=== PATIENT | female | born 1980 ===

== ENCOUNTER 2019-03-05 16:12 | Inpatient (IN) ==
[2019-03-05] MEDS ORDERED: HYDROmorphone HCL 1 MG/ML DISP.SYRIN IV ONE ×4 (16:20→18:15)
--- NOTE | 2019-03-05 16:25 | ERNOTE ---
Lower Extremity HPI - Narrative Date of Service: 03/05/19 - General Lower Extremities Pain: leg: left - lower leg Time Seen by Provider: 03/05/19 16:12 Source: patient Exam Limitations: no limitations - Immun/Allergies/Home Medications Immunizations: IMMUNIZATION HX Immunizations Up to Date No History of Influenza Vaccine No Allergies/Adverse Reactions: Allergies Allergy/AdvReac Type Severity Reaction Status Date / Time acetaminophen Allergy Hives Verified 03/05/19 16:18 [From Darvocet-N] Penicillins Allergy Hives Verified 03/05/19 16:18 propoxyphene Allergy Hives Verified 03/05/19 16:18 [From Darvocet-N] prednisone AdvReac Verified 03/05/19 16:18 - Pain Score Pain Score #1 Pain Score: 10 - History of Present Illness Narrative: The patient is a 38 year old female who presents for left leg injury which has been present since [employer]. There are associated symptoms of left lower leg deformity. The patient reports pain to left lower leg, 10/10. There are no alleviating factors. There are aggravating factors of movement. Previous treatments have included: Fentanyl given via EMS [employer] with minimal improvement. The past medical history includes: COPD, GERD, Factor V deficiency, asthma and history of breast and thyroid cancer. The social history is positive for former smoker. The patient has had no ill contacts. Patient arrives via EMS after fall at home. Patient states she was walking down steps off deck when her left foot slipped becoming caught under chair. Patient states she then attempted to get self up and landed on left leg. Review of Systems - Review of Systems Constitutional: Present: no symptoms reported. Absent: recent illness, fever, fatigue EYE: Present: no symptoms reported ENT: Present: no symptoms reported. Absent: ear pain, nasal drainage, sore throat Respiratory: Present: no symptoms reported. Absent: shortness of breath, cough Cardiology: Present: no symptoms reported. Absent: chest pain Gastrointestinal/Abdominal: Present: no symptoms reported. Absent: nausea, vomiting, diarrhea Genitourinary: Present: no symptoms reported. Absent: dysuria Musculoskeletal: Present: joint pain Skin: Present: no symptoms reported All Other Systems: All systems neg except as marked Medical History (Updated 03/05/19 @ 16:24 by Radha Nayak RN) Asthma Breast cancer remission COPD (chronic obstructive pulmonary disease) Factor V deficiency GERD (gastroesophageal reflux disease) H/O: hysterectomy Walter syndrome Thyroid cancer Surgical History: Surgical History (Updated 03/05/19 @ 16:24 by Radha Nayak RN) H/O partial thyroidectomy H/O tubal ligation History of appendectomy Family History: Family History (Last Reviewed 03/05/19 @ 18:31 by BING Roth) Mother Throat cancer Anxiety Father Brain cancer Anxiety Other Depression Social History: (Last Reviewed 03/05/19 @ 18:31 by BING Roth) Social History: Marital status: household members: spouse number of children: 1 parent marital status: current occupational status: disabled Tobacco: Smoking Status: Former smoker tobacco type: cigarettes Alcohol: alcohol intake: former Substance Use: substance use type: former substance user, methamphetamine Physical Exam - Physical Exam General Appearance: Present: wd/wn, alert, severe distress Head Exam: Present: normal inspection, no evidence of injury Eye Exam: Normal inspection: bilateral, PERRL: bilateral Neck: Present: normal inspection, nontender, full range of motion Respiratory: Present: no respiratory distress, normal breath sounds, no accessory muscle use, lungs clear Cardiovascular/Chest: Present: no murmur, tachycardia Peripheral Pulses: N=norm/S=strong/W=weak/B=bound/A=absent: Dorsalis-pedis (L): Normal Gastrointestinal/Abdominal: Present: normal bowel sounds, nontender, nondistended, soft, no organomegaly Extremity Exam: Present: decreased range of motion, bony tenderness - deformity to left lower leg with pain and overlying ecchymosis, other - passive dorsi flexion to left great toe without pain Neurological Exam: Present: alert, oriented, normal mood/affect Skin Exam: Present: normal color, warm/dry Progress - Date and Time Seen: Date and Time: 03/05/19 16:48 Images sent via [employer] to . Instructed to apply AO splint and admit. 03/05/19 17:29 Jan CARUSO in with patient. 03/05/19 18:00 Discussed case with , will admit to medicine for tib/fib fracture. - Results and Orders Patient's Lab Results:: I have reviewed the patient's lab results. - Vital Signs Patient's Vital Signs:: I have reviewed the patient's vital signs. Vital Signs: Vital Signs 03/05/19 16:12 Temperature 37.6 C Pulse Rate 118 H Respiratory Rate 22 H Blood Pressure 112/86 - X-Ray X-Ray #1 X-Ray: tibula/fibula Interpretation: Reviewed by me X-ray Comments: IMPRESSION: ACUTE OBLIQUE ANGULATED AND MILDLY DISPLACED TIB-FIB FRACTURES DISCUSSED ABOVE. Electronically signed by Rocky Solano D.O.. - Progress/Reassessment Chief Complaint: Lower Extremity Pain/ Injury Departure Clinical Impression: Tibia/fibula fracture Qualifiers: Encounter type: initial encounter Fracture type: closed Laterality: left Qualified Code(s): S82.202A - Unspecified fracture of shaft of left tibia, initi al encounter for closed fracture; S82.402A - Unspecified fracture of shaft of left fibula, initial encounter for closed fracture - Departure Disposition: Still a patient Condition: Fair
[2019-03-05 17:55] LABS: Hematocrit 37.1 % (37.0-47.0); Hemoglobin 12.3 gm/dL (12.5-16.0); Mean Cell Volume 96.1 fl (78-100); Mean Corpuscular Hemoglobin 31.9 pg (27-31); Mean Corpuscular Hgb Conc 33.2 g/dl (32-36); Mean Platelet Volume 11.8 fl (8-12.5); Neutrophil # 9.5 K/mm3 (1.3-6.0); Platelet Count 238 K/mm3 (150-450); Red Blood Count 3.86 M/mm3 (4.2-5.4); Red Cell Distribution Width 14.1 % (11.5-14.0); White Blood Count 11.6 K/mm3 (4.0-10.5)
[2019-03-05 18:10] LABS: Prothrombin Time (Patient) 10.1 Seconds (9.1-10.7)
[2019-03-05] MEDS ORDERED: MIDAZOLAM HCL/PF 5 MG/ML VIAL ONE (18:10)
[2019-03-05 18:11] LABS: INR 1.02 INR (0.92-1.08); Partial Thrombolplastin Time 25.7 Seconds (24-32)
[2019-03-05 18:14] LABS: Albumin * 3.4 gm/dl (3.4-5.0); Anion Gap 15.8 mmol/L (6.8-13.8); BUN/Creatinine Ratio 21.7 (9.0-21.6); Bilirubin, Total 0.2 mg/dL (0.0-1.1); Ca. Corrected For Albumin 9.7 mg/dL (8.4-10.2); Calcium * 9.5 mg/dL (7.9-10.9); Carbon Dioxide 24.7 mmol/L (24-32.6); Potassium 4.5 mmol/L (3.4-4.6); Total Protein 7.8 gm/dL (6.2-8.2)
[2019-03-05] MEDS ORDERED: HYDROmorphone HCL 1 MG/ML DISP.SYRIN ONE (18:14)
[2019-03-05] MEDS ORDERED: ONDANSETRON HCL/PF 2 MG/ML VIAL IV PRN (18:21)
[2019-03-05] MEDS ORDERED: HYDROmorphone HCL 1 MG/ML DISP.SYRIN IV PRN ×2 (18:21→21:35)
--- NOTE | 2019-03-05 18:35 | CONS ---
HPI - General Date of Service: 03/05/19 Narrative: Patient was leaving her house when she stepped on her porch and slipped. She states her leg got caught and her whole body weight came down on her leg. She had immediate pain and was brought to ER by EMS. She states her pain is significantly worse with movement, better with rest. She has had pain medication in the ER that has helped with the pain. She states she has a PMH of Factore V Leiden takes Xeralto daily. She has history of blood clots, approximately 2 weeks ago had a blood clot in her lung that was treated at [facility]. She notes a previous history of breast and thyroid cancer. She notes she was homeless at one point, but her overall health has improved in the last 6 years. Source: patient - History of Present Illness Allergies/Adverse Reactions: Allergies acetaminophen [From Darvocet-N] Allergy (Verified 03/05/19 16:18) Hives Penicillins Allergy (Verified 03/05/19 16:18) Hives propoxyphene [From Darvocet-N] Allergy (Verified 03/05/19 16:18) Hives prednisone Adverse Reaction (Verified 03/05/19 16:18) Tachycardia Date of Service: 03/05/19 closed reduction and splinting of left tibia/fibula fracture Physical Examination - Exam Vital Signs: Vital Signs - Last Taken Temp 37.6 C 03/05/19 16:12 Pulse 115 H 03/05/19 18:03 Resp 16 03/05/19 18:03 BP 140/73 H 03/05/19 18:03 Pulse Ox 94 03/05/19 18:03 O2 Oxygen Delivery Method Room Air Constitutional: Present: Alert, Cooperative, Acute distress Respiratory: Present: no respiratory distress Extremity: Present: other - LLE--> SILT, passive motion of toes minimal pain, mild external rotation of ankle compared bilaterally, dorsal pedis pulse 2+, distal capillary refill brisk, no obvious wounds, mild deformity Eye contact: Present: cooperative Thoughts: Present: normal thought pattern - Results and Findings: Lab/Microbiology results last 24 hrs: Abnormal/Pending Laboratory Last 24 HRS 03/05/19 03/05/19 17:50 17:50 WBC 11.6 H RBC 3.86 L Hgb 12.3 L MCH 31.9 H RDW 14.1 H Immature Gran # (Auto) 0.05 H Neutrophils % 82.0 H Lymphocytes % 11.6 L Neutrophils # 9.5 H Lymphocytes # 1.34 L Anion Gap 15.8 H BUN/Creatinine Ratio 21.7 H ALT 10 L - Assessments/Findings (1) Tibia/fibula fracture Problem: Acute Qualifiers: Encounter type: initial encounter Fracture type: closed Laterality: left Qualified Code(s): S82.202A - Unspecified fracture of shaft of left tibia, initial encounter for closed fracture; S82.402A - Unspecified fracture of shaft of left fibula, initial encounter for closed fracture Plan - Plan Plan: -38 y/o female s/p fall with left tibia/fibula fracture -NWB LLE -DVT prophy: arie saeed knee high, SCDs in bed -Neurovascular checks Q1H for monitoring for compartments syndrome -Maintain LLE in splint until surgery -Chronic medical conditions per medicine -Discussed closed reduction with splinting and conservative vs. surgical intervention with tibia nailing on 03/06/19. Discussed risk including but not limited to infection, bleed, malunion vs. nonunion fracture healing, VTE risk, stroke risk, cardiac risk, inherent surgical risk. Patient agreed to proceed with these interventions. Consent for reduction was obtained and preformed without significant complication, see procedure note for details. Patient will be admitted to medicine for monitoring due to chronic medical history and risks.
--- NOTE | 2019-03-05 18:58 | PROC NOTE ---
ED Procedures - Joint Reduction Joint Reduction Site: other - left tibia/fibula fracture Conscious Sedation: No Reduction Attempts: 1 Pre-Procedure NV Exam: Yes - no significant pain with passive motion of digits Post-Procedure NV Exam: Yes - no significant pain with passive motion of digits Post Joint Reduction Film: other - improved alignment with splint application to left lower extremity of tibia/fibula fracture Progress: Consent was obtained for reduction and splinting of left tibia/fibula fracture. Patient was given pain medication and mild distractio with slight internal rotation of left ankle was preformed. An AO ankle splint was applied with appropriate padding. Patient neurovascular exam was unchanged pre and post reduction. Patient tolerated procedure with mild to moderate pain. Once splint was applied patient reported decreased pain. Patient was stable in splint. - Splinting Left Hand-Made Type: ocl Splint: AO ankle Pre-Proc Neuro Vasc Exam: normal Post-Proc Neuro Vasc Exam: normal, unchanged from pre-exam
--- NOTE | 2019-03-05 23:25 | HP ---
Chief Complaint - Chief Complaint Date of Service: 03/05/19 Time of Service: 23:00 Chief Complaint: Left Leg Pain History of Present Illness: "Devon" is a 38 yo female with significant PMH of COPD, Breast Cancer, Factor V Lieden, and pulmonary embolism treated on Xarelto. She was taking the trash out of her house when she slipped on her door mat and her leg slid and bent and she landed awkwardly. She immediately had pain and her cracking noises. She was unable to bear weight and was found down shortly after and transported to the ER. Xray shows left middle and distal tibial spiral fracture and proximal fibula spiral fracture. Ortho was consulted and splinted the fracture temporarily, and recommend surgery tomorrow. They requested she be admitted to medicine for medical clearance due to her complicated medical history. She reports prior to the fall she was feeling well. She denies any recent chest pain or shortness of breath over the last two weeks. She does admit that she was recently hospitalized for Pulmonary Embolism after she had been unable to afford her xarelto and had stopped taking this for a month. She is now back on her Xarelto. She denies any bruising or bleeding concerns. She reports having a recent hysterectomy in June of this year without complications. She reports she has COPD and uses albuter nebulizers prn and daily symbicort. Medical History (Updated 03/05/19 @ 23:25 by Joshua Mccormack DO) Asthma Breast cancer remission COPD (chronic obstructive pulmonary disease) Factor V deficiency GERD (gastroesophageal reflux disease) Glaucoma H/O: hysterectomy Walter syndrome Thyroid cancer Surgical History: Surgical History (Updated 03/05/19 @ 16:24 by Radha Nayak RN) H/O partial thyroidectomy H/O tubal ligation History of appendectomy Family History: Family History (Last Reviewed 03/05/19 @ 19:07 by Shikha Dodge RN) Mother Throat cancer Anxiety Father Brain cancer Anxiety Other Depression Social History: (Last Reviewed 03/05/19 @ 19:07 by Shikha Dodge RN) Social History: Marital status: household members: spouse number of children: 1 parent marital status: current occupational status: disabled Tobacco: Smoking Status: Former smoker tobacco type: cigarettes Alcohol: alcohol intake: former Substance Use: substance use type: former substance user, methamphetamine Review Of Systems (GEN) - Review of Systems Generalized/Overall Review: Absent: Weakness, Chills, Fever EENTM: Present: No Symptoms Reported Respiratory: Absent: Cough, Shortness of Breath Cardiac: Absent: Chest Pain, Palpitations Abdominal: Absent: Nausea, Vomiting Genitourinary: Absent: Burning, Itching Musculoskeletal: Present: Other - Left leg pain Skin: Absent: Lesions, Rash Immunizations: IMMUNIZATION HX Immunizations Up to Date No History of Influenza Vaccine No Allergies/Adverse Reactions: Allergies Allergy/AdvReac Type Severity Reaction Status Date / Time acetaminophen Allergy Hives Verified 03/05/19 16:18 [From Darvocet-N] Penicillins Allergy Hives Verified 03/05/19 16:18 propoxyphene Allergy Hives Verified 03/05/19 16:18 [From Darvocet-N] prednisone AdvReac Verified 03/05/19 16:18 Home Medications: HOME MEDICATIONS Albuterol Sulfate [Albuterol Sulfate 2.5 MG/0.5ML] 2.5 mg INHALATION Q4H PRN 03/06/19 [Last Taken Unknown] Brexpiprazole [Rexulti] 2 mg PO HS 03/06/19 [Last Taken Unknown] Budesonide [Pulmicort Flexhaler] 2 puff INHALATION BID 03/06/19 [Last Taken Unknown] Diclofenac Sodium [Voltaren] 75 mg PO BID 03/06/19 [Last Taken Unknown] HYDROcodone/ACETAMINOPHEN [Hydrocodon-Acetaminophn 10-325] 1 tab PO Q6H PRN 03/06/19 [Last Taken Unknown] Levothyroxine Sodium [Synthroid] 75 mcg PO DAILY 03/06/19 [Last Taken Unknown] Mometasone Furoate [Asmanex] 1 puff INHALATION DAILY PRN 03/06/19 [Last Taken Unknown] Montelukast Sodium [Singulair] 10 mg PO DAILY PRN 03/06/19 [Last Taken Unknown] Omeprazole [Prilosec] 20 mg PO DAILY 03/06/19 [Last Taken Unknown] Rivaroxaban [Xarelto] 20 mg PO DAILY 03/06/19 [Last Taken Unknown] prednisoLONE ACETATE [Pred Forte 1%] 1 drp OPHTHALMIC (EYE) Q2H 03/06/19 [Last Taken Unknown] tiZANidine HCL [Tizanidine HCl] 2 mg PO HS 03/06/19 [Last Taken Unknown] Exam - Exam Vital Signs: Vital Signs - Last Taken Temp 37.0 C 03/05/19 19:21 Pulse 122 H 03/05/19 19:21 Resp 18 03/05/19 19:21 BP 140/50 H 03/05/19 19:21 Pulse Ox 95 03/05/19 19:21 Constitutional: Present: Alert, Oriented x3, Cooperative ENT Exam: Present: hearing grossly normal Eye Exam: bilateral eye: normal inspection Respiratory: Present: lungs clear, normal breath sounds Cardiovascular/Chest: Present: no murmur, tachycardia Peripheral Pulses: radial (R): 2+, radial (L): 2+ Abdomen: Present: Normal bowel sounds, soft, nontender, nondistended Skin Exam: Present: normal color, warm/dry, no cyanosis Appearance: Present: appropriate appearance, appropriate insight Eye contact: Present: cooperative, good eye contact, normal speech Diagnostic Studies: Abnormal Lab Results 03/05/19 03/05/19 Range/Units 17:50 17:50 WBC 11.6 H (4.0-10.5) K/mm3 RBC 3.86 L (4.2-5.4) M/mm3 Hgb 12.3 L (12.5-16.0) gm/dL MCH 31.9 H (27-31) pg RDW 14.1 H (11.5-14.0) % Immature Gran # (Auto) 0.05 H (0.000-0.0310) K/mm3 Neutrophils % 82.0 H (42-75.0) % Lymphocytes % 11.6 L (20-51) % Neutrophils # 9.5 H (1.3-6.0) K/mm3 Lymphocytes # 1.34 L (1.5-3.5) k/mm3 Anion Gap 15.8 H (6.8-13.8) mmol/L BUN/Creatinine Ratio 21.7 H (9.0-21.6) ALT 10 L (19-67) U/L Laboratory Results WBC 11.6 K/mm3 (4.0-10.5) H 03/05/19 17:50 RBC 3.86 M/mm3 (4.2-5.4) L 03/05/19 17:50 Hgb 12.3 gm/dL (12.5-16.0) L 03/05/19 17:50 Hct 37.1 % (37.0-47.0) 03/05/19 17:50 MCV 96.1 fl (78-100) 03/05/19 17:50 MCH 31.9 pg (27-31) H 03/05/19 17:50 MCHC 33.2 g/dl (32-36) 03/05/19 17:50 RDW 14.1 % (11.5-14.0) H 03/05/19 17:50 Plt Count 238 K/mm3 (150-450) 03/05/19 17:50 MPV 11.8 fl (8-12.5) 03/05/19 17:50 Immature Gran % (Auto) 0.40 % (0.001-0.429) 03/05/19 17:50 Immature Gran # (Auto) 0.05 K/mm3 (0.000-0.0310) H 03/05/19 17:50 82.0 % (42-75.0) H 03/05/19 17:50 11.6 % (20-51) L 03/05/19 17:50 4.2 % (0.0-9) 03/05/19 17:50 1.6 % (0.0-3.0) 03/05/19 17:50 0.2 % (0.0-1.0) 03/05/19 17:50 Nucleated RBC % 0.0 k/mm3 (0-1) 03/05/19 17:50 9.5 K/mm3 (1.3-6.0) H 03/05/19 17:50 1.34 k/mm3 (1.5-3.5) L 03/05/19 17:50 0.5 k/mm3 (0.0-1.0) 03/05/19 17:50 0.2 k/mm3 (0.0-0.7) 03/05/19 17:50 Absolute Basophils 0.0 k/mm3 (0.0-0.1) 03/05/19 17:50 PT 10.1 Seconds (9.1-10.7) 03/05/19 17:50 INR (Anticoag Therapy) 1.02 INR (0.92-1.08) 03/05/19 17:50 PTT (Vane) 25.7 Seconds (24-32) 03/05/19 17:50 Sodium 139 mmol/L (132-142) 03/05/19 17:50 139 mmol/L (130-142) 03/05/19 17:50 Potassium 4.5 mmol/L (3.4-4.6) 03/05/19 17:50 Chloride 103 mmol/L (97-106) 03/05/19 17:50 Carbon Dioxide 24.7 mmol/L (24-32.6) 03/05/19 17:50 15.8 mmol/L (6.8-13.8) H 03/05/19 17:50 BUN 18 mg/dL (3-23) 03/05/19 17:50 0.83 mg/dL (0.4-1.4) 03/05/19 17:50 Est GFR (Non-Af Amer) 83 mL/min (60-130) 03/05/19 17:50 21.7 (9.0-21.6) H 03/05/19 17:50 106 mg/dL (70-110) 03/05/19 17:50 Calcium 9.5 mg/dL (7.9-10.9) 03/05/19 17:50 Calcium Adj for Albumin 9.7 mg/dL (8.4-10.2) 03/05/19 17:50 0.2 mg/dL (0.0-1.1) 03/05/19 17:50 AST 7 U/L (0-48) 03/05/19 17:50 ALT 10 U/L (19-67) L 03/05/19 17:50 121 U/L (50-170) 03/05/19 17:50 7.8 gm/dL (6.2-8.2) 03/05/19 17:50 3.4 gm/dl (3.4-5.0) 03/05/19 17:50 Assessment/Plan - Narrative Narrative: "Devon" is a 38 yo female with left Tib/Fib spiral fractures. Orthopedics have been consulted in the ER. Temporary splint was placed and recommendation for surgical repair tomorrow. She will be admitted to observation and medical evaluated for complications and prepared for surgery. She has significant co- morbidities of COPD, Factor V Leiden, and recent pulmonary embolism (3 weeks ago). She is currently on xarelto. Her COPD is relatively controlled and she is on symbicort and albuterol nebulizer prn. She reports not needing her albuterol often and her lung exam is clear at this time. I would recommend albuterol nebulizer prior to surgery. Patient was evaluated for pre-operative risks. EKG completed and reviewed showing normal sinus rhythm. Based on Revised Cardiovascular Risk Index she has a risk of 4% for cardiovascular event. I feel she is medically cleared for surgery. Will hold xarelto at this time and may treat with lovenox or restarting xarelto after surgery per ortho's wishes. Expect 1 midnight stay and she should be ok for discharge following surgery. - Assessment/Plan (1) Tibia/fibula fracture Problem: Acute Qualifiers: Encounter type: initial encounter Fracture type: closed Laterality: left Qualified Code(s): S82.202A - Unspecified fracture of shaft of left tibia, initial encounter for closed fracture; S82.402A - Unspecified fracture of shaft of left fibula, initial encounter for closed fracture (2) COPD (chronic obstructive pulmonary disease) Problem: Acute (3) Factor V Leiden Problem: Acute (4) Pulmonary embolism Problem: Acute
[2019-03-06] MEDS: HYDROmorphone HCL 1 MG/ML DISP.SYRIN IV PRN ×6 (00:10→22:40)
[2019-03-06] MEDS ORDERED: HYDROmorphone HCL 2 MG/ML VIAL IV PRN (06:43)
[2019-03-06] MEDS ORDERED: DEXTROSE 5%-0.5 NORMAL SALINE 1,000 ML IV PRN (09:31)
[2019-03-06] MEDS ORDERED: ALBUTEROL SULFATE 2.5 MG/0.5 ML VIAL.NEB IH PRN (09:32)
[2019-03-06] MEDS ORDERED: ceFAZolin SODIUM/DEXTROSE,ISO 2 GM/50 ML BAG IV ONE (10:24)
[2019-03-06] MEDS ORDERED: ceFAZolin SODIUM 1 GM VIAL IV ONE (10:30)
[2019-03-06] MEDS: RINGER'S SOLUTION,LACTATED 1,000 ML IV PRN ×3 (10:45→15:02)
[2019-03-06] MEDS: ALBUTEROL SULFATE/IPRATROPIUM 3 ML NEBU IH PRN (10:58)
--- NOTE | 2019-03-06 11:09 | ANES ---
Anesthesia Pre Procedure Eval Vitals/Labs: Last Vital Signs Temp 36.3 C 03/06/19 10:10 Pulse 93 03/06/19 10:10 Resp 18 03/06/19 10:10 BP 117/53 03/06/19 10:10 Pulse Ox 94 03/06/19 10:10 HOME MEDICATIONS Albuterol Sulfate [Albuterol Sulfate 2.5 MG/0.5ML] 2.5 mg INHALATION Q4H PRN 03/06/19 [Last Taken Unknown] Brexpiprazole [Rexulti] 2 mg PO HS 03/06/19 [Last Taken Unknown] Budesonide [Pulmicort Flexhaler] 2 puff INHALATION BID 03/06/19 [Last Taken Unknown] Diclofenac Sodium [Voltaren] 75 mg PO BID 03/06/19 [Last Taken Unknown] HYDROcodone/ACETAMINOPHEN [Hydrocodon-Acetaminophn 10-325] 1 tab PO Q6H PRN 03/06/19 [Last Taken Unknown] Levothyroxine Sodium [Synthroid] 75 mcg PO DAILY 03/06/19 [Last Taken Unknown] Mometasone Furoate [Asmanex] 1 puff INHALATION DAILY PRN 03/06/19 [Last Taken Unknown] Montelukast Sodium [Singulair] 10 mg PO DAILY PRN 03/06/19 [Last Taken Unknown] Omeprazole [Prilosec] 20 mg PO DAILY 03/06/19 [Last Taken Unknown] Rivaroxaban [Xarelto] 20 mg PO DAILY 03/06/19 [Last Taken Unknown] prednisoLONE ACETATE [Pred Forte 1%] 1 drp OPHTHALMIC (EYE) Q2H 03/06/19 [Last Taken Unknown] tiZANidine HCL [Tizanidine HCl] 2 mg PO HS 03/06/19 [Last Taken Unknown] Allergies/Adverse Reactions: Allergies Allergy/AdvReac Type Severity Reaction Status Date / Time acetaminophen Allergy Hives Verified 03/05/19 16:18 [From Darvocet-N] Penicillins Allergy Hives Verified 03/05/19 16:18 propoxyphene Allergy Hives Verified 03/05/19 16:18 [From Darvocet-N] prednisone AdvReac Verified 03/05/19 16:18 - Planned Procedure Planned Procedure: LLE injury Medication List Reviewed:: Yes Allergies Verified: Yes Medical History (Updated 03/05/19 @ 23:25 by Joshua Mccormack DO) Asthma Breast cancer remission COPD (chronic obstructive pulmonary disease) Factor V deficiency GERD (gastroesophageal reflux disease) Glaucoma H/O: hysterectomy Walter syndrome Thyroid cancer Surgical History (Updated 03/05/19 @ 16:24 by Radha Nayak RN) H/O partial thyroidectomy H/O tubal ligation History of appendectomy Family History (Last Reviewed 03/06/19 @ 10:57 by Akbar Cortez CRNA) Mother Throat cancer Anxiety Father Brain cancer Anxiety Other Depression - Family Anesthesia History Family History:: no untoward family reactions to anesthesia, no familial bleeding tendencies, no family history of clotting disorders, no family history of premature - Airway/Neck/Teeth Within Normal Limits:: Yes Teeth Condition: intact Denture Type: Full upper Neck Exam: full range of motion Mallampatti Score: 1 Thyromental (T-M) distance: > 6 cm Mandibulo Hyoid distance: > 3 cm - Respiratory Respiratory History: asthma, COPD Smoking Status: Former smoker - quit 5 months ago Sleep Apnea currently treated: No Sleep Apnea by current assessment: No - Cardiovascular Tolerate Activity: Fair Heart Sounds: S1 & S2, Regular - Anesthesia Assessment and Plan ASA Class: PS, III Anesthesia Type Plan: Block - possible for post op pain relief, Spinal - Xaralta last on Tuesday Planned difficult intubation/equipment available: No
[2019-03-06] MEDS ORDERED: BUPIVACAINE HCL/EPINEPHRINE 50 ML VIAL IJ PRN (14:00)
[2019-03-06] MEDS ORDERED: MAG HYDROX/ALUMINUM HYD/SIMETH 30 ML UDC PO PRN (14:50)
[2019-03-06] MEDS ORDERED: NORMAL SALINE 1,000 ML IV PRN (14:50)
[2019-03-06] MEDS ORDERED: oxyCODONE HCL 5 MG TABLET PO PRN (14:54)
[2019-03-06] MEDS ORDERED: BUPIVACAINE HCL/EPINEPHRINE 50 ML VIAL IJ ONE (15:03)
--- NOTE | 2019-03-06 15:08 | OR ---
Operative Report - Dictated Report Narrative: Date: 03/06/2019 Surgeon: Carmine Dyson M.D. Internal Medicine Veterinary Technician: Jan Lewis PA-C provided a set of essential, skilled, educated hands that assisted in positioning, transfer, retraction, manipulation, irrigation, closure of wounds, and placement of dressings all of which could not be provided by the available surgical crew. Anesthesia: Spinal plus local Preoperative diagnosis: Left tibial and fibular shaft fractures Postoperative diagnosis: Left tibial and fibular shaft fractures Procedure: 1. Intramedullary nailing of left tibial shaft fracture 2. Intra-operative interpretation of radiographs Estimated blood loss: 150 mL Tourniquet time: None Retained implants: [employer] TriGen 8.5 x 300 mm tibial nail and associated interlocking screws Specimens: None Complications: None Indications: Brittany is a 38-year-old female who fell from standing height and sustained left tibial and fibular shaft fractures. They were seen in the emergency department with images obtained revealing the above injury. She was admitted to the hospital for planned surgical fixation and medical comanagement given her history of Factor V Leiden and history of multiple clots. The risks, benefits, and treatment options were discussed with the patient and the plan for intramedullary nailing of the tibia was discussed. Risks were reviewed including , DVT/PE, nerve/tendon/blood vessel injury, malunion, nonunion, failure of implants, prominent implants, arthrosis, persistent pain, need for additional procedures, and risks of anesthesia. Procedure: After a timeout, a spinal anesthetic was administered. Beanbag was utilized in order bump the operative leg and a well-padded tourniquet was applied to the operative thigh. The splint was removed and the leg was pre-scrubbed with chlorhexidine then prepped and draped in a standard sterile fashion. Attention was turned to the knee. A trans-patellar approach for our tibial nail was chosen. An approximately 4 cm incision was made directly over the patellar tendon. This was carried down through the tendon itself longitudinally. A guidepin was placed through the incision at the anterior aspect of the tibial plateau just off the articular surface on the lateral view and at the medial aspect of the lateral tibial eminence on the AP view centered down the tibial shaft. This was advanced down the intramedullary canal. The entry reamer was then used to ream our entry hole over the guidepin. A long ball-tipped guidewire was then passed down the intramedullary canal, across the fracture site, into a center-center position at the distal physeal scar of the distal tibia. This was confirmed with the C-arm. We checked the alignment of our fracture site on AP and lateral views and noted that it was well aligned. We then sequentially reamed the tibial canal starting with a 9 mm end-cutting reamer. This had significant chatter she was noted to have a very small tibial canal. We sequentially reamed up to 10 mm with significant cortical chatter. Our nail length was measured and we chose an 8.5 mm x 30 cm nail. This was advanced down the intramedullary canal over the guidewire and seated it completely distally. The C-arm was used to visualize the fracture site as we advanced our nail to ensure good alignment. There was no displacement of our fracture and with the nail fully seated, the fracture had excellent alignment on AP and lateral views. The first proximal interlocking screw was placed through the cantilever interlocking guide. While trying to place the second proximal interlocking screw, this became bound up in the nail hole. We were unable to back it out as the screw head was stripped. After several attempts with the hardware removal set we elected to cut the screw at the level of the bone with heavy side cutters. The sharp cut end of the screw was then burred down with a shirley-tip bur. Two distal interlocking screws were placed from medial to lateral using the perfect circles technique. Final images were taken at the knee, the fracture site, and the ankle. We confirmed appropriate placement and length of all of our implants as well as our fracture reduction. At this point we felt we had adequately stabilize her fracture. The wounds were all copiously irrigated with normal saline. The patellar tendon and subcutaneous tissue were closed utilizing 0 Vicryl. The skin was closed utilizing 3-0 Vicryl in an interrupted deep dermal fashion followed by 4-0 nylon for the skin. The wounds were dressed with xeroform, 4 x 4's, soft roll, and an YAKOV bandage. The patient was then placed in a cam walker. Patient was then awoken and transferred to postanesthesia care in stable condition. All sponge, sharp, and instrument counts were correct prior to closing the wounds.
--- NOTE | 2019-03-06 15:10 | PN ---
Subjective - Date and Time Seen Date: 03/06/19 Time: 10:30 Subjective Narrative: Patient reports no acute events, her pain is well controlled overnight. She notes no significant changes. She has no other significant acute symptoms. She notes her pain is worse with movement better with rest. She notes that the splint has aided in decreasing her overall pain. Objective - Vitals Vitals: Last Vital Signs Temp 36.5 C 03/06/19 15:04 Pulse 113 H 03/06/19 15:04 Resp 12 03/06/19 15:04 BP 127/82 03/06/19 15:04 Pulse Ox 100 03/06/19 15:04 - Abnormal Lab Findings Abnormal Lab Findings: Abnormal Lab Results 03/05/19 03/05/19 Range/Units 17:50 17:50 WBC 11.6 H (4.0-10.5) K/mm3 RBC 3.86 L (4.2-5.4) M/mm3 Hgb 12.3 L (12.5-16.0) gm/dL MCH 31.9 H (27-31) pg RDW 14.1 H (11.5-14.0) % Immature Gran # (Auto) 0.05 H (0.000-0.0310) K/mm3 Neutrophils % 82.0 H (42-75.0) % Lymphocytes % 11.6 L (20-51) % Neutrophils # 9.5 H (1.3-6.0) K/mm3 Lymphocytes # 1.34 L (1.5-3.5) k/mm3 Anion Gap 15.8 H (6.8-13.8) mmol/L BUN/Creatinine Ratio 21.7 H (9.0-21.6) ALT 10 L (19-67) U/L - Exam Constitutional: Present: Alert, Cooperative, No distress Respiratory: Present: no respiratory distress Extremity: Present: other - LLE--> AO ankle splint in place, distal capillary refill brisk, incision intact light touch, 5/5 toe flexion and extension diffuse mild tenderness about lower extremity at the level of the tibia and fibula Eye contact: Present: cooperative Thoughts: Present: normal thought pattern Assessment/Plan Plan Narrative: -38 y/o female status post a fall with a left tibia/fibula fracture -Nonweightbearing since time of injury -N.p.o. since midnight -Discussed with patient conservative or surgical intervention and possible risks versus benefits including but not limited to infection, bleeding, DVT risk, cardiac and stroke risk, malunion versus nonunion fracture healing, inherent risk of surgery. Patient wished to proceed with surgical intervention. Surgery will be performed on 03/06/2019. She was marked prior to surgical intervention. All questions were answered at this time. Patient will remain admitted in the hospital for monitoring postoperatively for pain control, progression to weightbearing status, postoperative complications. - Problems/Diagnosis (1) Tibia/fibula fracture Problem: Acute Qualifiers: Encounter type: initial encounter Fracture type: closed Laterality: left Qualified Code(s): S82.202A - Unspecified fracture of shaft of left tibia, initial encounter for closed fracture; S82.402A - Unspecified fracture of shaft of left fibula, initial encounter for closed fracture
--- NOTE | 2019-03-06 15:16 | ANES ---
Post Anesthesia Discharge - Transfer of Care Transfer of Care handoff given to nurse: Yes - Discharge from PACU Discharge from PACU when meets criteria: Yes
--- NOTE | 2019-03-06 15:16 | ANES ---
Post Anesthesia Assessment - Vital Signs Vitals: Last Vital Signs Temp 36.5 C 03/06/19 15:05 Pulse 113 H 03/06/19 15:05 Resp 12 03/06/19 15:05 BP 127/82 03/06/19 15:05 Pulse Ox 100 03/06/19 15:05 Airway Patency: Normal - Mental Status Level Of Consciousness: Awake - Pain Level Pain Score: 0 - N/V Assessment Nausea/Vomiting Presence: None Dehydration:: No
[2019-03-06] MEDS: ceFAZolin SODIUM 2 GM in DEXTROSE 5 % IN WATER 50 ML IV SCH ×2 (17:03)
--- NOTE | 2019-03-06 17:28 | PN ---
Subjective - Date and Time Seen Date: 03/06/19 Time: 17:24 Subjective Narrative: Devon is in tears from left leg pain. Reports she just got her oxycodone. Reports no nausea or vomiting. Ate food without problems after surgery. No fever or chills. Objective - Vitals Vitals: Last Vital Signs Temp 36.1 C 03/06/19 15:36 Pulse 113 H 03/06/19 16:21 Resp 16 03/06/19 15:51 BP 107/52 03/06/19 16:06 Pulse Ox 98 03/06/19 16:21 - Abnormal Lab Findings Abnormal Lab Findings: Abnormal Lab Results 03/05/19 03/05/19 Range/Units 17:50 17:50 WBC 11.6 H (4.0-10.5) K/mm3 RBC 3.86 L (4.2-5.4) M/mm3 Hgb 12.3 L (12.5-16.0) gm/dL MCH 31.9 H (27-31) pg RDW 14.1 H (11.5-14.0) % Immature Gran # (Auto) 0.05 H (0.000-0.0310) K/mm3 Neutrophils % 82.0 H (42-75.0) % Lymphocytes % 11.6 L (20-51) % Neutrophils # 9.5 H (1.3-6.0) K/mm3 Lymphocytes # 1.34 L (1.5-3.5) k/mm3 Anion Gap 15.8 H (6.8-13.8) mmol/L BUN/Creatinine Ratio 21.7 H (9.0-21.6) ALT 10 L (19-67) U/L - Exam Constitutional: Present: Alert, Oriented x3, Mild distress - due to pain Respiratory: Present: lungs clear, no respiratory distress Cardiovascular/Chest: Present: no murmur, tachycardia Abdomen: Present: Normal bowel sounds, soft, nontender, nondistended Appearance: Present: other - crying Assessment/Plan Plan Narrative: Pain is currently uncontrolled to discharge to home. Will have her get prn IV dilaudid for severe pain. She will also continue oxycodone oral. Will anticipate discharge to home tomorrow once pain is controlled. No other medical concerns at this time. - Problems/Diagnosis (1) Tibia/fibula fracture Problem: Acute Qualifiers: Encounter type: initial encounter Fracture type: closed Laterality: left Qualified Code(s): S82.202A - Unspecified fracture of shaft of left tibia, initial encounter for closed fracture; S82.402A - Unspecified fracture of shaft of left fibula, initial encounter for closed fracture (2) COPD (chronic obstructive pulmonary disease) Problem: Acute (3) Factor V Leiden Problem: Acute (4) Pulmonary embolism Problem: Acute
[2019-03-06] MEDS ORDERED: HYDROmorphone HCL 2 MG/ML VIAL IV ONE (18:15)
[2019-03-06] MEDS: tiZANidine HCL 4 MG TABLET PO SCH (20:00)
[2019-03-06] MEDS: SENNOSIDES/DOCUSATE SODIUM 1 TAB TABLET PO SCH (20:00)
[2019-03-06] MEDS: oxyCODONE HCL 5 MG TABLET PO PRN (21:06)
[2019-03-07] MEDS: HYDROmorphone HCL 1 MG/ML DISP.SYRIN IV PRN ×7 (00:59→18:07)
[2019-03-07] MEDS: ceFAZolin SODIUM 2 GM in DEXTROSE 5 % IN WATER 50 ML IV SCH ×4 (01:02→09:30)
[2019-03-07] MEDS: oxyCODONE HCL 5 MG TABLET PO PRN ×4 (01:09→20:12)
[2019-03-07] MEDS: LEVOTHYROXINE SODIUM 75 MCG TABLET PO SCH (07:03)
[2019-03-07] MEDS: RIVAROXABAN 20 MG TABLET PO SCH (09:24)
--- NOTE | 2019-03-07 10:52 | PN ---
Subjective - Date and Time Seen Date: 03/07/19 Time: 07:40 Subjective Narrative: Patient states she is had no acute events however she is having significant pain of her left lower extremity. Patient notes she is been given oral and IV medications he is only mildly have aided in pain relief. Patient notes she does not feel significantly hungry however she has not nauseated at this time. Patient notes her pain is worse with movement better with rest. She notes she has been up and ambulated however this did cause significant pain in her left lower leg. Objective - Vitals Vitals: Last Vital Signs Temp 37 C 03/07/19 10:00 Pulse 111 H 03/07/19 10:00 Resp 18 03/07/19 10:00 BP 146/92 H 03/07/19 10:00 Pulse Ox 94 03/07/19 10:00 - Exam Constitutional: Present: Alert, Cooperative, Acute distress Respiratory: Present: no respiratory distress Extremity: Present: other - LLE--> distal capillary refill brisk, 2+ dorsal pedis pulse, sensation intact light touch, bandages clean/dry/intact, passive range of motion elicited no significant pain Assessment/Plan Plan Narrative: - 38 y/o female postoperative day 1 status post closed reduction with nailing of distal tibia fracture -Partial weightbearing as tolerated, assistive device as needed, cam boot for weightbearing activities -P.o. diet as tolerated -PT/OT progress as tolerated -P.o. pain medication PRN, will adjust pain medications due to significant pain, avoid IV pain medication if possible -Maintain surgical dressings in place, note Jesus bandage and Cam boot were removed this morning, this significantly improved patient's pain, patient will be placed in Tubigrip with Tegaderms over surgical sites -Continue to monitor neurovascular checks -Chronic medical conditions per medicine team -Disposition continue to monitor for postoperative complications, work towards pain control with p.o. pain medication, continue to work towards PT/OT goals, patient will remain inpatient monitor for significant changes, plan to discharge home once all goals are met and pain is adequately controlled - Problems/Diagnosis (1) Tibia/fibula fracture Problem: Acute Qualifiers: Encounter type: initial encounter Fracture type: closed Laterality: left Qualified Code(s): S82.202A - Unspecified fracture of shaft of left tibia, init ial encounter for closed fracture; S82.402A - Unspecified fracture of shaft of left fibula, initial encounter for closed fracture
--- NOTE | 2019-03-07 11:57 | PN ---
Subjective - Date and Time Seen Date: 03/07/19 Time: 11:26 Subjective Narrative: "Devon" reports 10/10 pain while crying. She just had a bath and reports the pain was severe. PT attempted to work with her twice today but the pain was so severe they were unable to do anything. She has been using IV dilaudid as soon as available 2mg IV every 2 hours, but claims it still is not working and she needs more. Evaluated by ortho and no evidence of compartment syndrome. She reports she was able to eat a banana this morning for breakfast. Objective - Vitals Vitals: Last Vital Signs Temp 37 C 03/07/19 10:00 Pulse 111 H 03/07/19 10:00 Resp 18 03/07/19 10:00 BP 146/92 H 03/07/19 10:00 Pulse Ox 94 03/07/19 10:00 - Exam Constitutional: Present: Alert, Oriented x3, Acute distress - Crying in pain Respiratory: Present: lungs clear, normal breath sounds Cardiovascular/Chest: Present: regular rate, rhythm, no murmur Abdomen: Present: Normal bowel sounds, soft Extremity: Present: other - Left leg with dressing, able to move toes, normal capillary refill Assessment/Plan Plan Narrative: Devon has intractable pain from left tib/fib fracture and repair. She has been evaluated by ortho and no evidence of compartment syndrome. Ortho adjusted pain medications. I will add gabapentin to help. We do not carry her antipsychotic Rexulti, will try to have someone bring this in for her as her pain perception may be affected, and being on this may help her pain control. - Problems/Diagnosis (1) Tibia/fibula fracture Problem: Acute Qualifiers: Encounter type: initial encounter Fracture type: closed Laterality: left Qualified Code(s): S82.202A - Unspecified fracture of shaft of left tibia, initial encounter for closed fracture; S82.402A - Unspecified fracture of shaft of left fibula, initial encounter for closed fracture (2) Intractable pain Problem: Acute (3) COPD (chronic obstructive pulmonary disease) Problem: Acute (4) Factor V Leiden Problem: Acute (5) Pulmonary embolism Problem: Acute
[2019-03-07] MEDS: GABAPENTIN 300 MG CAPSULE PO SCH ×2 (12:18→20:12)
--- NOTE | 2019-03-07 12:36 | PN ---
Jasbir Note - Interim Date: 03/07/19 Time: 12:31 Narrative: 03/07/19 12:31 Evaluated patient at bedside at the request of PT and nursing due to increased pain with manipulation of the leg. Patient was tearful and complaining of pain throughout the entire leg upon my evaluation. Prior to my evaluation according to my physician talent acquisition assistant she was sleeping comfortably when he came into the room and was then awoken and began crying. On exam, she has brisk capillary refill of her toes, full sensation to light touch, and a strongly palpable DP pulse. She is hypersensitive to touch all over the left lower extremity even over the distal thigh. She does have pain with passive stretch of the toes but but is able to actively flex and extend the toes. She states that her pain is worse when the leg is being manipulated but at rest it improves with pain medication. At this point, I do not have an extremely high suspicion for compartment syndrome given her improvement with pain meds, her sleeping comfortably when not being disturbed, and her fairly histrionic reaction when anyone is in the room. I counseled the patient that if this does not subjectively improve, that we may need to measure her compartment pressures to have an objective measurement. I feel that her exam is difficult to interpret given her dramatic reactions. At this time there are no clinical indicators of compartment syndrome other than her subjective rating of her pain. We will watch the patient extremely closely and I will reevaluate her in 1/2-hour.
[2019-03-07] MEDS ORDERED: HYDROmorphone HCL 1 MG/ML DISP.SYRIN IV STA (13:25)
[2019-03-07] MEDS ORDERED: ENOXAPARIN SODIUM 40 MG/0.4 ML SYRG SC SCH (13:50)
--- NOTE | 2019-03-07 15:49 | PN ---
Jasbir Note - Interim Date: 03/07/19 Time: 14:00 Narrative: 03/07/19 15:45 Re-evaluated patient at bedside around 1310. Patient still complaining of severe pain exam relatively unchanged. I counseled her that at this point given her concerning exam findings I recommended compartment pressure measurement to have an objective measurement to go off of in determining further care. After discussion she wished to proceed with this. The [employer] compartment pressure monitor was utilized and compartment pressures of the anterior and deep posterior compartments were taken. Blood pressure was taken prior to these measurements and was measured at 139/89. Compartment pressure was measured at 12 mmHg in the anterior compartment and 8 mmHg in the deep posterior compartment, neither consistent with an evolving compartment syndrome. She was given a dose of IV Dilaudid with significant improvement in her pain. I counseled her that we will continue using the IV pain medication as needed until her pain improves. We will continue to monitor her neurovascular status closely.
[2019-03-07] MEDS: SENNOSIDES/DOCUSATE SODIUM 1 TAB TABLET PO SCH (21:42)
[2019-03-07] MEDS: tiZANidine HCL 4 MG TABLET PO SCH (21:43)
[2019-03-08] MEDS: oxyCODONE HCL 5 MG TABLET PO PRN ×6 (01:16→23:41)
[2019-03-08] MEDS: GABAPENTIN 300 MG CAPSULE PO SCH ×3 (02:32→18:44)
[2019-03-08] MEDS: LEVOTHYROXINE SODIUM 75 MCG TABLET PO SCH (07:24)
[2019-03-08] MEDS: RIVAROXABAN 20 MG TABLET PO SCH (08:23)
--- NOTE | 2019-03-08 11:15 | PN ---
Subjective - Date and Time Seen Date: 03/08/19 Time: 07:35 Subjective Narrative: Patient reports no acute events. She does note she is continued to have pain overnight. She notes that continued use IV and oral pain medication to control her pain. Notes she has been up and ambulated in the hallways without significant complication. Patient still notes that her pain is a 9/10 worse with movement better with rest. Objective - Vitals Vitals: Last Vital Signs Temp 36.8 C 03/08/19 09:14 Pulse 110 H 03/08/19 09:14 Resp 18 03/08/19 09:14 BP 132/82 03/08/19 09:14 Pulse Ox 94 03/08/19 09:14 - Exam Constitutional: Present: Alert, Mild distress Respiratory: Present: no respiratory distress Extremity: Present: other - LLE--> no significant drainage on dressings, Tubigrip was placed, sensation intact light touch, 4+/5 plantar flexion dorsiflexion of ankle, distal capillary refill brisk Assessment/Plan Plan Narrative: - 38 y/o female postoperative day 2 status post closed reduction with nailing of distal tibia fracture -Partial weightbearing as tolerated, assistive device as needed, cam boot for weightbearing activities -P.o. diet as tolerated -PT/OT progress as tolerated -P.o. pain medication PRN, as needed IV pain medication throughout the night, still working to transition to oral medications. Note patient's pain is more well controlled today -Maintain dressings in place, monitor for drainage -Note that yesterday compartment pressures were measured with no significant abnormalities found concern for compartment syndrome negative at this time, passive motion without pain on exam this morning -Continue to monitor neurovascular checks -Chronic medical conditions per medicine team -Disposition continue to monitor for postoperative complications, work towards pain control with p.o. pain medication, continue to work towards PT/OT goals, patient will remain inpatient monitor for significant changes, plan to discharge to [facility] facility due to need for monitoring for postoperative complications, pain control, PT/OT - Problems/Diagnosis (1) Tibia/fibula fracture Problem: Acute Qualifiers: Encounter type: initial encounter Fracture type: closed Laterality: left Qualified Code(s): S82.202A - Unspecified fracture of shaft of left tibia, initial encounter for closed fracture; S82.402A - Unspecified fracture of shaft of left fibula, initial encounter for closed fracture
[2019-03-08] MEDS: LORATADINE 10 MG TABLET PO SCH (11:44)
--- NOTE | 2019-03-08 11:55 | PN ---
Subjective - Date and Time Seen Date: 03/08/19 Time: 11:55 Subjective Narrative: Devon reports the pain is better today, but would still like IV dilaudid. Working to control pain with oxycodone and gabapentin. She does not think she would be able to take care of herself at home. Case management looking into half-way. No nausea or vomiting. No fever or chills. Objective - Vitals Vitals: Last Vital Signs Temp 36.8 C 03/08/19 09:14 Pulse 110 H 03/08/19 09:14 Resp 18 03/08/19 09:14 BP 132/82 03/08/19 09:14 Pulse Ox 94 03/08/19 09:14 - Exam Constitutional: Present: Alert, Oriented x3, Cooperative ENT Exam: Present: hearing grossly normal Respiratory: Present: lungs clear, normal breath sounds Cardiovascular/Chest: Present: no murmur, tachycardia Abdomen: Present: Normal bowel sounds, soft, nontender, nondistended Extremity: Present: other - Left leg wrapped Eye contact: Present: cooperative, good eye contact, normal speech Assessment/Plan Plan Narrative: Devon is feeling better today. Pain is better controlled. Still having significant pain with movement, but was able to work with PT. Case management looking into skilled cares for rehab. Unsafe to discharge to home at this time. - Problems/Diagnosis (1) Tibia/fibula fracture Problem: Acute Qualifiers: Encounter type: initial encounter Fracture type: closed Laterality: left Qualified Code(s): S82.202A - Unspecified fracture of shaft of left tibia, initial encounter for closed fracture; S82.402A - Unspecified fracture of shaft of left fibula, initial encounter for closed fracture (2) Intractable pain Problem: Acute (3) COPD (chronic obstructive pulmonary disease) Problem: Acute (4) Factor V Leiden Problem: Acute (5) Pulmonary embolism Problem: Acute
[2019-03-08] MEDS: SENNOSIDES/DOCUSATE SODIUM 1 TAB TABLET PO SCH (20:54)
[2019-03-08] MEDS: tiZANidine HCL 4 MG TABLET PO SCH (20:54)
[2019-03-09] MEDS: GABAPENTIN 300 MG CAPSULE PO SCH ×3 (03:12→19:26)
[2019-03-09] MEDS: oxyCODONE HCL 5 MG TABLET PO PRN ×5 (03:13→22:03)
[2019-03-09] MEDS: LEVOTHYROXINE SODIUM 75 MCG TABLET PO SCH (06:42)
[2019-03-09] MEDS: PSEUDOEPHEDRINE HCL 30 MG TAB PO PRN (08:23)
[2019-03-09] MEDS: RIVAROXABAN 20 MG TABLET PO SCH (08:24)
[2019-03-09] MEDS: LORATADINE 10 MG TABLET PO SCH (08:29)
--- NOTE | 2019-03-09 09:47 | PN ---
Subjective - Date and Time Seen Date: 03/09/19 Time: 07:45 Subjective Narrative: Patient notes she has no acute events overnight. She notes she has been up walking with physical therapy. She notes that she has no other significant symptoms of than her pain medication makes her mildly drowsy. She states that she still has significant leg pain however it is tolerable with p.o. pain medication. Patient currently has no other systemic symptoms or concerns. Objective - Vitals Vitals: Last Vital Signs Temp 36.8 C 03/09/19 09:00 Pulse 107 H 03/09/19 09:00 Resp 12 03/09/19 09:00 BP 142/94 H 03/09/19 09:00 Pulse Ox 99 03/09/19 09:00 - Exam Constitutional: Present: Alert, Cooperative, No distress Respiratory: Present: no respiratory distress Extremity: Present: other - LLE--> sensation intact light touch, diffuse moderate edema, distal capillary refill brisk, 2+ pulses distally, diffuse mild to moderate tenderness about her lower extremity, bandages clean/dry/intact, passive motion without pain, 4+/5 plantar flexion/dorsiflexion of the ankle Assessment/Plan Plan Narrative: - 38 y/o female postoperative day 3 status post closed reduction with nailing of distal tibia fracture -Partial weightbearing as tolerated, assistive device as needed, cam boot for weightbearing activities -P.o. diet as tolerated -PT/OT progress as tolerated -P.o. pain medication PRN, patient has been successfully transition to long- acting as well as a short acting p.o. pain medication appears to be appropriately controlling her pain currently(OxyContin 10 mg twice daily p.o., oxycodone 10 mg every 4 to 6 hours as needed for pain p.o.) -DVT: Discussion with patient's PCP recommended continuation of the Xarelto daily, continue with knee-high compression using CAROLINE hose or Tubigrip that has been supplied -Maintain dressings in place, monitor for drainage, change dressings with sterile gauze and tape or Tegaderms PRN -Note that on postop day 1 compartment pressures were measured with no significant abnormalities found concern for compartment syndrome negative at this time, passive motion without pain on exam this morning -Continue to monitor neurovascular checks -Chronic medical conditions per medicine team -Disposition: Discharge to detention facility, follow-up in orthopedic outpatient clinic at 2 weeks postop continue with recommendations stated above - Problems/Diagnosis (1) Tibia/fibula fracture Problem: Acute Qualifiers: Encounter type: initial encounter Fracture type: closed Laterality: left Qualified Code(s): S82.202A - Unspecified fracture of shaft of left tibia, initial encounter for closed fracture; S82.402A - Unspecified fracture of shaft of left fibula, initial encounter for closed fracture
[2019-03-09] MEDS: SENNOSIDES/DOCUSATE SODIUM 1 TAB TABLET PO SCH (20:45)
[2019-03-09] MEDS: tiZANidine HCL 4 MG TABLET PO SCH (20:46)
[2019-03-09] MEDS: ALBUTEROL SULFATE/IPRATROPIUM 3 ML NEBU IH PRN (22:31)
--- NOTE | 2019-03-09 23:53 | PN ---
Subjective - Date and Time Seen Date: 03/09/19 Time: 10:00 Subjective Narrative: She reports pain now is ok. When she gets up to move her pain is a 10/10 and she would like IV dilaudid. No fever, chills, nausea, or vomiting. Objective - Vitals Vitals: Last Vital Signs Temp 37.0 C 03/09/19 22:30 Pulse 114 H 03/09/19 22:41 Resp 21 H 03/09/19 22:41 BP 117/70 03/09/19 22:30 Pulse Ox 99 03/09/19 22:31 - Exam Constitutional: Present: Alert, Oriented x3, Cooperative ENT Exam: Present: hearing grossly normal Respiratory: Present: lungs clear, normal breath sounds, no respiratory distress Cardiovascular/Chest: Present: no murmur, tachycardia Abdomen: Present: Normal bowel sounds, soft, nontender, nondistended Assessment/Plan Plan Narrative: Medically, no concerns. Looking into placement for SNF as she is unsafe at home. Needs continued PT to improve strength. I believe pain is adequately controlled. Discussed that pain is to be expected with movement and we are working to avoid IV pain medication. - Problems/Diagnosis (1) Tibia/fibula fracture Problem: Acute Qualifiers: Encounter type: initial encounter Fracture type: closed Laterality: left Qualified Code(s): S82.202A - Unspecified fracture of shaft of left tibia, in itial encounter for closed fracture; S82.402A - Unspecified fracture of shaft of left fibula, initial encounter for closed fracture (2) Intractable pain Problem: Acute (3) COPD (chronic obstructive pulmonary disease) Problem: Acute (4) Factor V Leiden Problem: Acute (5) Pulmonary embolism Problem: Acute
[2019-03-10] MEDS: oxyCODONE HCL 5 MG TABLET PO PRN ×6 (01:13→19:35)
[2019-03-10] MEDS: GABAPENTIN 300 MG CAPSULE PO SCH ×3 (04:27→20:23)
[2019-03-10] MEDS: LEVOTHYROXINE SODIUM 75 MCG TABLET PO SCH (06:31)
[2019-03-10] MEDS: PSEUDOEPHEDRINE HCL 30 MG TAB PO PRN (08:06)
[2019-03-10] MEDS: RIVAROXABAN 20 MG TABLET PO SCH (08:06)
[2019-03-10] MEDS: LORATADINE 10 MG TABLET PO SCH (08:06)
--- NOTE | 2019-03-10 09:53 | PN ---
Subjective - Date and Time Seen Date: 03/10/19 Time: 09:51 Subjective Narrative: She is having some chest congestion this morning. She feels like her pain is controlled. She's having some oozing from her incision. Objective - Review of Systems Generalized/Overall Review: Denies: Fever Respiratory: Denies: Cough, Shortness of Breath Cardiac: Denies: Edema Abdominal: Reports: No Symptoms Reported Genitourinary Symptoms: Reports: No Symptoms Reported Musculoskeletal Complaints: Reports: Joint Pain Skin: Reports: Other - surgical incisions of left lower leg - Vitals Vitals: Last Vital Signs Temp 36.6 C 03/10/19 07:47 Pulse 97 03/10/19 07:47 Resp 12 03/10/19 07:47 BP 133/78 03/10/19 07:47 Pulse Ox 96 03/10/19 07:47 - Exam Constitutional: Present: Alert, No distress Respiratory: Present: lungs clear, normal breath sounds, no respiratory distress Cardiovascular/Chest: Present: tachycardia Abdomen: Present: soft, nontender Extremity: Absent: lower extremity edema Skin Exam: Present: other - incisions of left upper leg with sutures in place Assessment/Plan - Problems/Diagnosis (1) Tibia/fibula fracture Problem: Acute Qualifiers: Encounter type: initial encounter Fracture type: closed Laterality: left Qualified Code(s): S82.202A - Unspecified fracture of shaft of left tibia, initial encounter for closed fracture; S82.402A - Unspecified fracture of shaft of left fibula, initial encounter for closed fracture Narrative: POD #4 operative repair. Pain control per ortho. She has a mental disability, and can not care for herself as she is recovering. [facility] is helping with placement, and appreciate their assistance. (2) Factor V Leiden Problem: Chronic (3) Pulmonary embolism Problem: Chronic Narrative: Unable to find documentation regarding previous PE. Continue xarelto. (4) COPD (chronic obstructive pulmonary disease) Problem: Chronic Narrative: Self reported, as we do not have access to prior medical records. Continue albuterol q4h prn. She is oxygenating well on room air.
[2019-03-10] MEDS: MAGNESIUM HYDROXIDE 30 ML UDC PO PRN (15:10)
[2019-03-10] MEDS: SENNOSIDES/DOCUSATE SODIUM 1 TAB TABLET PO SCH (20:25)
[2019-03-10] MEDS: tiZANidine HCL 4 MG TABLET PO SCH (20:25)
[2019-03-11] MEDS: oxyCODONE HCL 5 MG TABLET PO PRN ×6 (00:24→23:25)
[2019-03-11] MEDS: GABAPENTIN 300 MG CAPSULE PO SCH ×3 (03:39→19:26)
[2019-03-11] MEDS: LEVOTHYROXINE SODIUM 75 MCG TABLET PO SCH (07:27)
[2019-03-11] MEDS: LORATADINE 10 MG TABLET PO SCH (08:54)
[2019-03-11] MEDS: RIVAROXABAN 20 MG TABLET PO SCH (08:54)
[2019-03-11] MEDS: PSEUDOEPHEDRINE HCL 30 MG TAB PO PRN ×2 (08:54→15:15)
[2019-03-11] MEDS: DOXYCYCLINE HYCLATE 100 MG TABLET PO SCH ×2 (11:23→20:04)
[2019-03-11] MEDS: FLUTICASONE PROPIONATE 120 SPRAY INHALER NS SCH (11:24)
--- NOTE | 2019-03-11 12:11 | PN ---
Subjective - Date and Time Seen Date: 03/11/19 Time: 11:57 Subjective Narrative: Patient reports cough, nasal congestion, chest congestion. She states she had quite a bit of drainage from her incision yesterday. Objective - Review of Systems Generalized/Overall Review: Denies: Fever EENTM: Reports: Nose Congestion Respiratory: Reports: Cough Cardiac: Denies: Chest Pain Abdominal: Denies: Nausea Genitourinary Symptoms: Reports: No Symptoms Reported Skin: Reports: Change in Color - redness of left lower leg, Other - drainage from incision - Vitals Vitals: Last Vital Signs Temp 37.2 C 03/11/19 10:27 Pulse 95 03/11/19 10:27 Resp 14 03/11/19 10:27 BP 136/73 03/11/19 10:27 Pulse Ox 100 03/11/19 10:27 - Exam Constitutional: Present: Alert, No distress ENT Exam: Present: moist mucous membranes, other - maxillary tenderness Respiratory: Present: normal breath sounds, no respiratory distress Cardiovascular/Chest: Present: regular rate, rhythm Abdomen: Present: soft, nontender Extremity: Present: lower extremity edema - left lower extremity, other - left lower extremity bruising of ankle Skin Exam: Present: other - 8X2 area of erythema of anterior left lower leg, independent of incisions. Incisions covered with bandages. Eye contact: Present: cooperative Assessment/Plan - Problems/Diagnosis (1) Tibia/fibula fracture Problem: Acute Qualifiers: Encounter type: initial encounter Fracture type: closed Laterality: left Qualified Code(s): S82.202A - Unspecified fracture of shaft of left tibia, initial encounter for closed fracture; S82.402A - Unspecified fracture of shaft of left fibula, initial encounter for closed fracture Narrative: She is POD #5 tibial shaft fracture, awaiting [facility] placement. She does not feel like she can care for herself at home. However, she is several days out at this point, and has not been accepted to a facility. She may reach PT goals, and may be able to DC home. Continue PT. Pain control per ortho. There is some concern that she is manipulating her bandages, which increases risk of infection. Doxycycline has been started for sinusitis. She has developed some anterior erythema of that leg, and will monitor for resolution. With her erythema and edema, DVT is in the differential, but she is taking Xarelto, and will continue. (2) Sinusitis Problem: Acute Qualifiers: Sinusitis location: maxillary Chronicity: acute Narrative: Given her concominant lower extremity erythema, will start doxycycline for sinusitis. (3) Pulmonary embolism Problem: Chronic Narrative: Recent diagnosis of PE. Continue xarelto. Pulse, respiratory rate normal today, and she is oxygenating well. (4) COPD (chronic obstructive pulmonary disease) Problem: Chronic (5) Factor V Leiden Problem: Chronic
--- NOTE | 2019-03-11 12:21 | PN ---
Subjective - Date and Time Seen Date: 03/11/19 Time: 12:16 Subjective Narrative: Patient reports no significant acute events, however she has noted a small area of warmness and pain about her ankle. She notes today had to change dressings yesterday due to drainage. Patient has no other acute complaints other than some sinus drainage currently. She notes she has been up and ambulating with a walker. Objective - Vitals Vitals: Last Vital Signs Temp 37.2 C 03/11/19 10:27 Pulse 95 03/11/19 10:27 Resp 14 03/11/19 10:27 BP 136/73 03/11/19 10:27 Pulse Ox 100 03/11/19 10:27 - Exam Constitutional: Present: Alert, Cooperative, No distress Extremity: Present: other - LLE--> sensation intact light touch, moderate diffuse edema about lower extremity, small region of erythema on the anterior portion of lower leg, dressings clean/dry/intact, dorsal pedis pulse 2+, diffuse moderate tenderness about lower extremity Assessment/Plan Plan Narrative: - 38 y/o female postoperative day 5 status post closed reduction with nailing of distal tibia fracture -Partial weightbearing as tolerated, assistive device as needed, cam boot for weightbearing activities -P.o. diet as tolerated -PT/OT progress as tolerated -P.o. pain medication PRN, patient has been successfully transition to long- acting as well as a short acting p.o. pain medication appears to be appropriately controlling her pain currently(OxyContin 10 mg twice daily p.o., oxycodone 10 mg every 4 to 6 hours as needed for pain p.o.) -DVT: Discussion with patient's PCP recommended continuation of the Xarelto daily, continue with knee-high compression using CAROLINE hose or Tubigrip that has been supplied -Maintain dressings in place, monitor for drainage, change dressings with sterile gauze and tape or Tegaderms PRN -Note that on postop day 1 compartment pressures were measured with no significant abnormalities found concern for compartment syndrome negative at this time, passive motion without pain on exam this morning -Small region of erythema on the anterior lower leg not directly connected to any surgical incisions, diffuse mild warmth to her lower extremity, will nory region to monitor for progression -Continue to monitor neurovascular checks -Chronic medical conditions per medicine team -Disposition: Discharge to alf facility, follow-up in orthopedic outpatient clinic at 2 weeks postop continue with recommendations stated above - Problems/Diagnosis (1) Tibia/fibula fracture Problem: Acute Qualifiers: Encounter type: initial encounter Fracture type: closed Laterality: left Qualified Code(s): S82.202A - Unspecified fracture of shaft of left tibia, initial encounter for closed fracture; S82.402A - Unspecified fracture of shaft of left fibula, initial encounter for closed fracture
[2019-03-11] MEDS: SENNOSIDES/DOCUSATE SODIUM 1 TAB TABLET PO SCH (20:05)
[2019-03-11] MEDS: tiZANidine HCL 4 MG TABLET PO SCH (20:05)
[2019-03-12] MEDS: oxyCODONE HCL 5 MG TABLET PO PRN ×2 (02:48→12:27)
[2019-03-12] MEDS: GABAPENTIN 300 MG CAPSULE PO SCH ×2 (02:48→11:10)
[2019-03-12] MEDS: LEVOTHYROXINE SODIUM 75 MCG TABLET PO SCH (07:44)
--- NOTE | 2019-03-12 07:54 | PN ---
Subjective - Date and Time Seen Date: 03/12/19 Time: 07:40 Subjective Narrative: Patient reports no acute events. She notes she is had no changes in her pain significantly. She notes she wishes to go home today. She states she has family who has a place she can stay and people who would be available to help her on a daily basis. Patient notes no other acute complaints currently. Objective - Vitals Vitals: Last Vital Signs Temp 36.6 C 03/12/19 07:00 Pulse 92 03/12/19 07:00 Resp 16 03/12/19 07:00 BP 131/78 03/12/19 07:00 Pulse Ox 99 03/12/19 07:00 - Exam Constitutional: Present: Alert, Cooperative, No distress Extremity: Present: other - LLE--> sensation intact light touch, dorsal pedis pulse 2+, 4+/5 dorsiflexion/plantarflexion of the ankle, diffuse edema moderately throughout the lower extremity, dressings clean/dry/intact Assessment/Plan Plan Narrative: - 38 y/o female postoperative day 6 status post closed reduction with nailing of distal tibia fracture -Partial weightbearing as tolerated, assistive device as needed, cam boot for weightbearing activities -P.o. diet as tolerated -PT/OT progress as tolerated -P.o. pain medication PRN, patient has been successfully transition to long- acting as well as a short acting p.o. pain medication appears to be appropriately controlling her pain currently(OxyContin 10 mg twice daily p.o., oxycodone 10 mg every 4 to 6 hours as needed for pain p.o.) -DVT: Discussion with patient's PCP recommended continuation of the Xarelto daily, continue with knee-high compression using CAROLINE hose or Tubigrip that has been supplied -Maintain dressings in place, monitor for drainage, change dressings with sterile gauze and tape or Tegaderms PRN -Note that on postop day 1 compartment pressures were measured with no significant abnormalities found concern for compartment syndrome negative at this time, passive motion without pain on exam this morning -Small region of erythema on the anterior lower leg not directly connected to any surgical incisions, diffuse mild warmth to her lower extremity, no significant change from marked region in the past 24 hours -Continue to monitor neurovascular checks -Chronic medical conditions per medicine team -Disposition: Patient wishes to be discharged home, note she would need home health for monitoring dressings, PT, medication compliance, follow-up in orthopedic outpatient clinic at 2 weeks postop - Problems/Diagnosis (1) Tibia/fibula fracture Problem: Acute Qualifiers: Encounter type: initial encounter Fracture type: closed Laterality: left Qualified Code(s): S82.202A - Unspecified fracture of shaft of left tibia, initial encounter for closed fracture; S82.402A - Unspecified fracture of shaft of left fibula, initial encounter for closed fracture
[2019-03-12] MEDS: MAGNESIUM HYDROXIDE 30 ML UDC PO PRN (08:34)
[2019-03-12] MEDS: FLUTICASONE PROPIONATE 120 SPRAY INHALER NS SCH (08:34)
[2019-03-12] MEDS: LORATADINE 10 MG TABLET PO SCH (08:35)
[2019-03-12] MEDS: RIVAROXABAN 20 MG TABLET PO SCH (08:35)
[2019-03-12] MEDS: DOXYCYCLINE HYCLATE 100 MG TABLET PO SCH (08:35)
--- NOTE | 2019-03-12 13:08 | DS ---
(1) Tibia/fibula fracture Problem: Acute Qualifiers: Encounter type: initial encounter Fracture type: closed Laterality: left Qualified Code(s): S82.202A - Unspecified fracture of shaft of left tibia, initial encounter for closed fracture; S82.402A - Unspecified fracture of shaft of left fibula, initial encounter for closed fracture (2) Intractable pain Problem: Acute (3) COPD (chronic obstructive pulmonary disease) Problem: Chronic (4) Factor V Leiden Problem: Chronic (5) Pulmonary embolism Problem: Chronic (6) Sinusitis Problem: Acute Qualifiers: Sinusitis location: maxillary Chronicity: acute Date of Discharge:: 03/12/19 Description of Stay: "Devon" is a 38 yo female admitted for left tib/fib fracture after falling coming out of her house to take out the trash. She has a medical history that was complicated by COPD and recent pulmonary embolism on xarelto. She was medically cleared for surgery. She had reduction of fracture and then splinting followed by intramedullary nailing of left tibial shaft fracture. She had significant pain following surgery and was evaluated for compartment syndrome, but this was not felt to be present. Her pain medications were adjusted and eventually pain was adequately controlled. Due to her medical and psychological conditions with her pain and weakness it was felt that she was not safe to be discharged to her home by herself. We looked into SNF discharge but patient was able to arrange to live with her grandmother with [facility]. She needs home health because she it is physically taxing for her to leave the home and she needs physical therapy for strengthening. She needs home health nursing due to left tib/fib fracture, pulmonary embolism, and COPD to monitor pain needs, breathing status, and work with PT for strengthening. She is unable to ambulate on her own or with the assistance of a cane due to weakness and unsteadiness. She needs a front wheeled walker to aid in the completion of her ADLs. During hospital course she also developed sinus pain and was started on doxycycline for sinusitis. She will be continued on this for a total of 14 days. Procedures Performed: see notes below List Procedures: 03/05/19 - Reduction and splinting of left tibia/fibula fracture 03/06/19 - Intramedulary nailing of left tibial shaft fracture Results and Findings: Lab Pending Results 03/05/19 17:50: WBC 11.6 H, RBC 3.86 L, Hgb 12.3 L, Hct 37.1, MCV 96.1, MCH 31.9 H, MCHC 33.2, RDW 14.1 H, Plt Count 238, MPV 11.8, Immature Gran % (Auto) 0.40, Immature Gran # (Auto) 0.05 H, Neutrophils % 82.0 H, Lymphocytes % 11.6 L, Monocytes % 4.2, Eosinophils % 1.6, Basophils % 0.2, Nucleated RBC % 0.0, Neutrophils # 9.5 H, Lymphocytes # 1.34 L, Monocytes # 0.5, Eosinophils # 0.2, Absolute Basophils 0.0 03/05/19 17:50: PT 10.1, INR (Anticoag Therapy) 1.02, PTT (Bartholomew) 25.7 03/05/19 17:50: Sodium 139, Plasma Sodium 139, Potassium 4.5, Chloride 103, Carbon Dioxide 24.7, Anion Gap 15.8 H, BUN 18, Creatinine 0.83, Est GFR (Non-Af Amer) 83, BUN/Creatinine Ratio 21.7 H, Random Glucose 106, Calcium 9.5, Calcium Adj for Albumin 9.7, Total Bilirubin 0.2, AST 7, ALT 10 L, Alkaline Phosphatase 121, Total Protein 7.8, Albumin 3.4 Discharge Location: Home Disposition: Home Health Service Home Health Agency: [facility] Home Health Condition: Fair Face to Face Encounter completed per [facility] Guidelines: Yes Discharge Activity: Partial-Weight bearing - Partial weightbearing as tolerated, assistive device as needed, cam boot for weightbearing activities Discharge Diet: General/regular food Referrals: Carmine Dyson MD [Staff Physician] - Two Weeks (2 weeks from surgery date) Barrington Caceres APRN [Non Staff Physicians] - One Week Problem Oriented Discharge Instructions to Patient/Family: Tibial Fracture, Adult Additional Patient Instructions (free text): [facility]. Nursing, bath aide and PT. Please call report to [phone]. Fax orders, facesheet, H&P, [place] Summary to [phone]. PCP is Garry Caceres NP at [facility]. Please fax records from stay at [place]. Partial weightbearing as tolerated, assistive device as needed, cam boot for weightbearing activities Knee-high compression using CAROLINE hose or Tubigrip that has been supplied Maintain dressings in place. Monitor for drainage. Change dressings with sterile gauze and tape or Tegaderms PRN. Only change dressing if necessary. Prescriptions (Any new or edited meds): Fluticasone Propionate [Flonase] 1 spray NS BID #1 inhaler Gabapentin [Neurontin] 300 mg PO Q8H #90 cap oxyCODONE HCL [Oxycodone] 10 mg PO Q3H PRN #90 tab PRN Reason: Severe Pain (Pain Scale 7-10) oxyCODONE HCL [Oxycontin] 10 mg PO BID #40 tab.sr.12h Sennosides/Docusate Sodium [Senokot-S] 2 tab PO HS #60 tab Doxycycline Hyclate [Vibratab] 100 mg PO BID #26 tab Complete Home Medications List: Complete Home Medication List: Albuterol Sulfate [Albuterol Sulfate 2.5 MG/0.5ML] 2.5 mg INHALATION Q4H PRN 03/06/19 Brexpiprazole [Rexulti] 2 mg PO HS 03/06/19 Budesonide [Pulmicort Flexhaler] 2 puff INHALATION BID 03/06/19 Diclofenac Sodium [Voltaren] 75 mg PO BID 03/06/19 Levothyroxine Sodium [Synthroid] 75 mcg PO DAILY 03/06/19 Mometasone Furoate [Asmanex] 1 puff INHALATION DAILY PRN 03/06/19 Montelukast Sodium [Singulair] 10 mg PO DAILY PRN 03/06/19 Omeprazole [Prilosec] 20 mg PO DAILY 03/06/19 Rivaroxaban [Xarelto] 20 mg PO DAILY 03/06/19 prednisoLONE ACETATE [Pred Forte 1%] 1 drp OPHTHALMIC (EYE) Q2H 03/06/19 tiZANidine HCL [Tizanidine HCl] 2 mg PO HS 03/06/19 Doxycycline Hyclate [Vibratab] 100 mg PO BID #26 tab 03/12/19 Fluticasone Propionate [Flonase] 1 spray NS BID #1 inhaler 03/12/19 Gabapentin [Neurontin] 300 mg PO Q8H #90 cap 03/12/19 Mag Hydrox/Aluminum Hyd/Simeth [Maalox Plus Suspension] 30 ml PO Q6H PRN udc 03/12/19 Magnesium Hydroxide [Milk Of Magnesia] 30 ml PO DAILY PRN udc 03/12/19 Rivaroxaban [Xarelto] 20 mg PO DAILY tablet 03/12/19 Sennosides/Docusate Sodium [Senokot-S] 2 tab PO HS #60 tab 03/12/19 oxyCODONE HCL [Oxycodone] 10 mg PO Q3H PRN #90 tab 03/12/19 oxyCODONE HCL [Oxycontin] 10 mg PO BID #40 tab.sr.12h 03/12/19
[2019-03-12 16:07] VITALS: BP 143/83
== END 2019-03-12 16:00 | disposition home health service (06) | DRG 562 ==
LOC: MS 16:12 → ER 16:12 → OBSVTOIN 17:35 → INTOOBSV 17:35 → MS 19:00
PROVIDERS: ADMIT Family Medicine; ATTEND Family Medicine
DX: Z87.891 Personal history of nicotine dependence; D68.51 Activated protein C resistance; W01.0XXA Fall on same level from slipping, tripping and stumbling without subsequent striking against object, initial encounter; J01.00 Acute maxillary sinusitis, unspecified; Z85.850 Personal history of malignant neoplasm of thyroid; S82.242A Displaced spiral fracture of shaft of left tibia, initial encounter for closed fracture; G89.18 Other acute postprocedural pain; S82.442A Displaced spiral fracture of shaft of left fibula, initial encounter for closed fracture; Z79.01 Long term (current) use of anticoagulants; J44.9 Chronic obstructive pulmonary disease, unspecified; I26.99 Other pulmonary embolism without acute cor pulmonale; Z85.3 Personal history of malignant neoplasm of breast
CPT/HCPCS: 36415; 73590; 80053; 85025; 85610; 85730; 87081; 93005; 94640; 94664; 96374; 97116; 97161; 97165; 97530; 97535; 99285; G0378; J2405